=== PATIENT | female | born 1980 | race African-American/Black ===

== ENCOUNTER 2020-02-28 08:48 | Emergency (ER) | payer MEDICAID, OTHER ==
[~2020-02-28] VITALS: Ht 160 cm; Wt 82.0 kg
[~2020-02-28 08:48] MED LIST: DOCU-138 PO; FERR-63 PO; IBUP-779 PO
[2020-02-28 10:23] LABS: BASOPHILS % 0.7 % (0.0-2.0); HEMATOCRIT. 37.8 % (36.0-48.0); HEMOGLOBIN. 12.8 g/dL (12.0-16.0); LYMPHOCYTES % 25.8 % (20.0-50.0); MEAN PLATELET VOLUME 8.7 fl (7.4-10.4); MONOCYTES % 6.6 % (2.0-8.0); NEUTROPHILS % 65.9 % (40.0-76.0); PLATELET 193 x1000/uL (130-400); RED BLOOD CELL COUNT 4.25 mill/uL (4.2-5.4); RED CELL DISTRIBUTION WIDTH 13.3 % (11.6-14.6)
[2020-02-28 10:32] LABS: INR 0.9; PROTHROMBIN TIME 9.9 sec (9.6-11.0)
[2020-02-28 10:37] LABS: CHLORIDE 106 mEq/L (98-107)
[2020-02-28 10:49] LABS: B-HCG QUANTITATIVE 74 mIU/mL (<3)
[2020-02-28 12:28] LABS: CLARITY URINE CLEAR (CLEAR); COLOR URINE YELLOW (YELLOW); KETONES URINE NEGATIVE (NEGATIVE); LEUKOCYTE ESTERASE URINE NEGATIVE (NEGATIVE); NITRITE URINE NEGATIVE (NEGATIVE); OCCULT BLOOD URINE 2+ (NEGATIVE); PH URINE 7.5 (4.5-8.0); PROTEIN URINE NEGATIVE (NEGATIVE); SPECIFIC GRAVITY URINE 1.016 (1.005-1.030); UROBILINOGEN URINE 0.2 E.U./dL (0.2-1.0)
[2020-02-28 12:42] VITALS: BP 135/80
== END 2020-02-28 12:44 | disposition home or self-care (01) ==
LOC: ER 08:48
DX: O20.9 Hemorrhage in early pregnancy, unspecified (principal); O26.891 Other specified pregnancy related conditions, first trimester; R10.2 Pelvic and perineal pain; R03.0 Elevated blood-pressure reading, without diagnosis of hypertension; Z3A.01 Less than 8 weeks gestation of pregnancy; O09.521 Supervision of elderly multigravida, first trimester
CPT/HCPCS: 36415; 76801; 80053; 81003; 84702; 85025; 86850; 86900; 93005; 99285

== ENCOUNTER 2020-05-10 08:59 | Emergency (ER) | payer OTHER ==
[~2020-05-10] VITALS: Ht 172.7 cm; Wt 89.0 kg
[2020-05-10 09:55] LABS: BASOPHILS % 0.7 % (0.0-2.0); EOSINOPHILS % 0.9 % (0.0-5.0); HEMATOCRIT. 39.8 % (36.0-48.0); HEMOGLOBIN. 13.5 g/dL (12.0-16.0); LYMPHOCYTES % 21.2 % (20.0-50.0); MEAN CORPUSCULAR HEMOGLOBIN 30.1 pg (28.0-32.0); MEAN PLATELET VOLUME 8.6 fl (7.4-10.4); MONOCYTES % 5.4 % (2.0-8.0); NEUTROPHILS % 71.8 % (40.0-76.0); PLATELET 203 x1000/uL (130-400); RED BLOOD CELL COUNT 4.47 mill/uL (4.2-5.4); RED CELL DISTRIBUTION WIDTH 13.1 % (11.6-14.6)
[2020-05-10 10:00] VITALS: BP 118/67
[2020-05-10 10:03] LABS: CHLORIDE 105 mEq/L (98-107)
[2020-05-10 10:15] LABS: B-HCG QUANTITATIVE 426 mIU/mL (<3)
[2020-05-10] MEDS ORDERED: ACETAMINOPHEN 325MG TABLET PO ONE (11:45)
[2020-05-10 12:23] LABS: CLARITY URINE CLEAR (CLEAR); COLOR URINE YELLOW (YELLOW); KETONES URINE NEGATIVE (NEGATIVE); LEUKOCYTE ESTERASE URINE NEGATIVE (NEGATIVE); NITRITE URINE NEGATIVE (NEGATIVE); OCCULT BLOOD URINE NEGATIVE (NEGATIVE); PROTEIN URINE NEGATIVE (NEGATIVE); SPECIFIC GRAVITY URINE 1.005 (1.005-1.030); UROBILINOGEN URINE 0.2 E.U./dL (0.2-1.0)
[2020-05-10 12:47] LABS: *AMPHETAMINES SCREEN URINE NEGATIVE (NEGATIVE); *BARBITURATES SCREEN URINE NEGATIVE (NEGATIVE); *BENZODIAZEPINES SCREEN URINE NEGATIVE (NEGATIVE)
[2020-05-10 12:48] LABS: *COCAINE SCREEN URINE NEGATIVE (NEGATIVE); OPIATES URINE SCREEN NEGATIVE (NEGATIVE); PHENCYCLIDINE URINE SCREEN NEGATIVE (NEGATIVE)
[2020-05-10 12:50] LABS: CANNABINOID URINE SCREEN PRESUMTIVE POSITIVE (NEGATIVE); METHADONE URINE SCREEN NEGATIVE (NEGATIVE)
== END 2020-05-10 14:30 | disposition home or self-care (01) ==
LOC: ER 08:59
DX: O03.9 Complete or unspecified spontaneous abortion without complication (principal); R10.2 Pelvic and perineal pain
CPT/HCPCS: 36415; 76830; 76856; 80053; 80305; 81003; 81025; 84702; 85025; 86850; 86900; 86901; 93005; 99285; Z7610

== ENCOUNTER 2020-05-31 09:21 | Emergency (ER) | payer OTHER ==
[~2020-05-31] VITALS: Ht 160 cm; Wt 81.0 kg
[2020-05-31] MEDS ORDERED: METOCLOPRAMIDE HCL 10MG/2ML VIAL IV STA (09:55)
[2020-05-31] MEDS ORDERED: FAMOTIDINE 20MG/2ML VIAL IV STA (09:55)
[2020-05-31] MEDS ORDERED: SODIUM CHLORIDE 0.9% 1,000 ML IV ONE ×2 (10:00→12:30)
[2020-05-31 10:19] LABS: BASOPHILS % 0.9 % (0.0-2.0); EOSINOPHILS % 0.2 % (0.0-5.0); HEMATOCRIT. 39.1 % (36.0-48.0); HEMOGLOBIN. 13.8 g/dL (12.0-16.0); LYMPHOCYTES % 11.4 % (20.0-50.0); MEAN CORPUSCULAR HEMOGLOBIN 30.3 pg (28.0-32.0); MEAN CORPUSCULAR VOLUME 86.1 fL (81.0-99.0); MEAN PLATELET VOLUME 8.5 fl (7.4-10.4); MONOCYTES % 5.4 % (2.0-8.0); NEUTROPHILS % 82.1 % (40.0-76.0); PLATELET 233 x1000/uL (130-400); RED BLOOD CELL COUNT 4.55 mill/uL (4.2-5.4); RED CELL DISTRIBUTION WIDTH 12.4 % (11.6-14.6)
[2020-05-31 10:32] LABS: CHLORIDE 101 mEq/L (98-107)
[2020-05-31 10:39] LABS: HCG SCREEN POSITIVE
[2020-05-31 11:13] LABS: CLARITY URINE CLEAR (CLEAR); COLOR URINE YELLOW (YELLOW); KETONES URINE 4+ (NEGATIVE); LEUKOCYTE ESTERASE URINE NEGATIVE (NEGATIVE); NITRITE URINE NEGATIVE (NEGATIVE); OCCULT BLOOD URINE 2+ (NEGATIVE); PH URINE 5.5 (4.5-8.0); PROTEIN URINE TRACE (NEGATIVE); SPECIFIC GRAVITY URINE 1.031 (1.005-1.030)
[2020-05-31 12:30] VITALS: BP 107/70
[2020-05-31] MEDS ORDERED: NITROFURANTOIN 100MG M/M CAPSULE PO ONE (12:30)
[2020-05-31] MEDS ORDERED: NITR-87 MT (15:09)
== END 2020-05-31 15:22 | disposition home or self-care (01) ==
LOC: ER 09:21
DX: O21.9 Vomiting of pregnancy, unspecified (principal); Z3A.01 Less than 8 weeks gestation of pregnancy
CPT/HCPCS: 36415; 80053; 81003; 83690; 84703; 85025; 96361; 96374; 96375; 99284; J2765; J3490; J7030; Z7610

== ENCOUNTER 2020-06-04 12:37 | Emergency (ER) | payer OTHER ==
[~2020-06-04] VITALS: Ht 160 cm; Wt 63.0 kg
[~2020-06-04 12:37] MED LIST changes: +NITR-87 MT
[2020-06-04] MEDS ORDERED: METOCLOPRAMIDE HCL 10MG/2ML VIAL IV ONE (14:30)
[2020-06-04] MEDS ORDERED: LACTATED RINGERS 1,000 ML IV SCH (14:30)
[2020-06-04 14:49] LABS: CHLORIDE 102 mEq/L (98-107)
[2020-06-04 14:50] LABS: BASOPHILS % 0.5 % (0.0-2.0); EOSINOPHILS % 0.2 % (0.0-5.0); HEMATOCRIT. 42.6 % (36.0-48.0); HEMOGLOBIN. 14.3 g/dL (12.0-16.0); LYMPHOCYTES % 18.6 % (20.0-50.0); MEAN CORPUSCULAR HEMOGLOBIN 29.2 pg (28.0-32.0); MEAN CORPUSCULAR VOLUME 86.9 fL (81.0-99.0); MEAN PLATELET VOLUME 8.9 fl (7.4-10.4); MONOCYTES % 5.8 % (2.0-8.0); NEUTROPHILS % 74.9 % (40.0-76.0); PLATELET 261 x1000/uL (130-400); RED CELL DISTRIBUTION WIDTH 12.7 % (11.6-14.6)
[2020-06-04 15:12] LABS: B-HCG QUANTITATIVE 47093 mIU/mL (<3)
[2020-06-04] MEDS ORDERED: COMP25R PR (18:16)
[2020-06-04 20:18] VITALS: BP 103/66
== END 2020-06-04 20:19 | disposition home or self-care (01) ==
LOC: ER 12:56
DX: O21.8 Other vomiting complicating pregnancy (principal); Z3A.01 Less than 8 weeks gestation of pregnancy; Z79.899 Other long term (current) drug therapy
CPT/HCPCS: 36415; 76801; 76817; 80048; 81025; 84702; 85025; 86850; 86900; 86901; 93005; 96361; 96374; 99285; J2765; L1830; Z7610

== ENCOUNTER 2023-02-21 07:41 | Emergency (ER) | payer SELFPAY ==
[~2023-02-21] VITALS: Ht 167.6 cm; Wt 75.0 kg
[~2023-02-21 07:41] MED LIST changes: +COMP25R PR
[2023-02-21 07:48] VITALS: O2SAT 100
[2023-02-21] MEDS ORDERED: NAPR-681 MT (09:17)
[2023-02-21] MEDS ORDERED: AMOX1TAB16 MT (09:17)
[2023-02-21 09:54] VITALS: TEMP 98.2
[2023-02-21] MEDS ORDERED: KETOROLAC 15MG/ML VIAL IM ONE (10:00)
[2023-02-21 10:08] VITALS: BP 136/92; PULSE 80; RESP 17
== END 2023-02-21 10:11 | disposition home or self-care (01) ==
LOC: ER 07:41
DX: K08.89 Other specified disorders of teeth and supporting structures (principal); Z79.899 Other long term (current) drug therapy
CPT/HCPCS: 96372; 99283; J1885; Z7610

== ENCOUNTER 2023-10-24 16:13 | Emergency (ER) | payer SELFPAY ==
[~2023-10-24] VITALS: Ht 160 cm; Wt 81.0 kg
[~2023-10-24 16:13] MED LIST changes: +AMOX1TAB16 MT; +NAPR-681 MT
[2023-10-24 16:27] VITALS: BP 145/97; PULSE 90; RESP 18; TEMP 98.3; O2SAT 100
[2023-10-24] MEDS ORDERED: DEXT30SU17 MT (18:43)
[2023-10-24] MEDS ORDERED: TOPUD MT (18:43)
[2023-10-24] MEDS ORDERED: IBUP-1523 MT (18:43)
== END 2023-10-24 19:50 | disposition home or self-care (01) ==
LOC: ER 16:13
DX: U07.1 COVID-19 (principal); Z79.899 Other long term (current) drug therapy
CPT/HCPCS: 71045; 99283

== ENCOUNTER 2024-06-08 22:51 | Emergency (ER) | payer SELFPAY ==
[~2024-06-08] VITALS: Ht 157.5 cm; Wt 84.0 kg
[~2024-06-08 22:51] MED LIST changes: +DEXT30SU17 MT; +IBUP-1523 MT; +TOPUD MT
[2024-06-08 23:02] VITALS: TEMP 36.7; O2SAT 100
[2024-06-08] MEDS ORDERED: B50 MT (23:23)
[2024-06-08 23:30] VITALS: BP 124/87; PULSE 73; RESP 17; O2SAT 100
== END 2024-06-08 23:34 | disposition home or self-care (01) ==
LOC: ER 22:51
DX: G47.00 Insomnia, unspecified (principal); Z79.1 Long term (current) use of non-steroidal anti-inflammatories (NSAID)
CPT/HCPCS: 99282